=== PATIENT | female | born 1950 | race Caucasian/White ===

== ENCOUNTER → 2018-03-22 | Outpatient (CLI) | payer BC ==
[~2018-03-22] MED LIST: AMPH30TA2 PO; CLON2TAB9 PO; FISH OIL PO; LEVO88TA2 PO; LIOT50TA2 PO; MAGNESIUM PO; MELATONIN PO; OMEP-110 PO; POTA8TAB PO; TRIA1TAB3 PO; VITAMIN B PO; VITAMIN D PO; VITAMIN E PO; ZOLP5TAB6 PO
[2018-03-22 16:04] LABS: BASOPHILS # (AUTO) 0.03 x10^3/uL (0-0.1); BASOPHILS % (AUTO) 1 % (0-1); EOSINOPHILS # (AUTO) 0.17 x10^3/uL (0-0.4); EOSINOPHILS % (AUTO) 3 % (1-7); LYMPHOCYTES # (AUTO) 1.65 x10^3/uL (1-3.4); LYMPHOCYTES % (AUTO) 26 % (22-44); MD NO; MEAN CORPUSCULAR HEMOGLOBIN 31.1 pg (27.0-34.8); MEAN CORPUSCULAR HGB CONC 33.7 g/dL (32.4-35.8); MEAN CORPUSCULAR VOLUME 92.5 fL (80-100); MEAN PLATELET VOLUME 9.4 fL (7.4-10.4); MONOCYTES # (AUTO) 0.54 x10^3/uL (0.2-0.8); MONOCYTES % (AUTO) 9 % (2-9); NEUTROPHILS # (AUTO) 3.95 x10^3/uL (1.8-6.8); NEUTROPHILS % (AUTO) 62 % (42-75); PLATELET COUNT 314 x10^3/uL (130-400); RED BLOOD COUNT 4.56 x10^6/uL (3.82-5.3); RED CELL DISTRIBUTION WIDTH 12.5 % (9.6-15.2)
[2018-03-22 16:15] LABS: INTERNATIONAL NORMALIZED RATIO 1.01 (0.93-1.1); PROTHROMBIN TIME 10.7 Seconds (9.6-11.5)
[2018-03-22 16:18] LABS: ALANINE AMINOTRANSFERASE 51 U/L (12-78); ALBUMIN 3.6 g/dL (3.4-5.0); ANION GAP 7 mmol/L (5-15); CALCIUM 8.6 mg/dL (8.5-10.1); CHLORIDE 104 mmol/L (98-107); CREATININE 1.28 mg/dL (0.55-1.02)
[2018-03-22 16:20] LABS: ALKALINE PHOSPHATASE 113 U/L (45-117); BILIRUBIN,TOTAL 0.6 mg/dL (0.2-1.0); TOTAL PROTEIN 7.2 g/dL (6.4-8.2)
== END | disposition home or self-care (01) ==
LOC: STAR 15:05
PROVIDERS: ATTEND Specialist
DX: Z01.818 Encounter for other preprocedural examination (principal); C54.1 Malignant neoplasm of endometrium
CPT/HCPCS: 36415; 71046; 80053; 85025; 85610; 85730; 86304; 93005

== ENCOUNTER 2018-04-05 11:29 | Day surgery (SDC) | payer BC ==
[~2018-04-05] VITALS: Ht 152.4 cm; Wt 87.8 kg
[~2018-04-05 11:29] MED LIST changes: +BUPIVACAINE 0.25% ONE; +CEFAZOLIN 1,000 MG ONE; +DEXAMETHASONE 4 MG/ML, 1ML ONE; +EPINEPHRINE 1 MG/ML, 1ML ONE; +FENTANYL PF 250 MCG/5ML ONE; +GLYCOPYRROLATE 0.2MG/1ML, 5ML ONE; +MIDAZOLAM 1 MG/ML, 2ML ONE; +NEOSTIGMINE 1 MG/ML, 10ML ONE; +ONDANSETRON 2MG/ML, 2ML ONE; +PROPOFOL 10 MG/ML, 20ML ONE; +ROCURONIUM 10MG/ML,5ML ONE
[2018-04-05 12:01] VITALS: BP 168/91
[2018-04-05] MEDS ORDERED: LACTATED RINGERS 1,000 ML IV SCH (12:05)
[2018-04-05] MEDS ORDERED: GABAPENTIN 300 MG CAPSULE PO STA (12:07)
[2018-04-05] MEDS ORDERED: ACETAMINOPHEN 500 MG TABLET PO STA (12:07)
[2018-04-05] MEDS ORDERED: INDOCYANINE GREEN 25 MG VIAL ONE (12:12)
[2018-04-05] MEDS ORDERED: ACETAMINOPHEN 500 MG TABLET ONE (12:25)
[2018-04-05] MEDS ORDERED: GABAPENTIN 300 MG CAPSULE ONE (12:25)
[2018-04-05] MEDS ORDERED: LABETALOL 5MG/ML, 20ML IV PRN (12:30)
[2018-04-05] MEDS ORDERED: PROMETHAZINE 25 MG/ML, 1ML IM PRN ×2 (12:30)
[2018-04-05] MEDS ORDERED: ONDANSETRON 2MG/ML, 2ML IV PRN (12:30)
[2018-04-05] MEDS ORDERED: PROMETHAZINE 25 MG SUPP PR PRN (12:30)
[2018-04-05] MEDS ORDERED: OXYcodone 5 MG/5 ML ORAL.SOL UDC PO PRN (12:30)
[2018-04-05] MEDS ORDERED: MEPERIDINE/PF 25MG/0.5ML IVPush PRN (12:30)
[2018-04-05] MEDS ORDERED: HYDROmorphone 2 MG/ML, 1ML IVPush PRN (12:30)
[2018-04-05] MEDS ORDERED: MORPHINE SULFATE 4 MG/ML, 1ML IVPush PRN (12:30)
[2018-04-05] MEDS ORDERED: hydrALAzine 20 MG/ML, 1ML IV PRN (12:30)
[2018-04-05] MEDS ORDERED: FENTANYL PF 100 MCG/2ML IV PRN (12:30)
[2018-04-05] MEDS ORDERED: PROMETHAZINE 12.5 MG SUPP PR PRN (12:30)
[2018-04-05] MEDS ORDERED: ONDANSETRON ODT 8 MG PO PRN (12:30)
[2018-04-05] MEDS ORDERED: PROMETHAZINE 25 MG/ML, 1ML IV PRN (12:30)
[2018-04-05] MEDS ORDERED: ACETAMINOPHEN 500 MG TABLET PO ONE (13:00)
[2018-04-05] MEDS ORDERED: GABAPENTIN 300 MG CAPSULE PO ONE (13:00)
[2018-04-05] MEDS ORDERED: FENTANYL PF 250 MCG/5ML ONE (13:08)
[2018-04-05] MEDS ORDERED: KETOROLAC 30 MG/1 ML ONE (13:09)
[2018-04-05] MEDS ORDERED: OXYcodone 5 MG/5 ML ORAL.SOL UDC ONE ×2 (14:43→18:39)
[2018-04-05] MEDS ORDERED: LABETALOL 5MG/ML, 20ML ONE (14:49)
[2018-04-05] MEDS ORDERED: FENTANYL PF 100 MCG/2ML ONE (15:14)
[2018-04-05] MEDS ORDERED: METOCLOPRAMIDE 5 MG/ML, 2ML IVPush PRN (18:00)
[2018-04-05] MEDS ORDERED: ONDANSETRON 2MG/ML, 2ML IVPush PRN (18:00)
[2018-04-05] MEDS ORDERED: ACETAMINOPHEN 325 MG TABLET ONE (18:38)
[2018-04-05] MEDS ORDERED: OXYcodone/APAP 7.5/325MG TABLET PO PRN (19:00)
== END 2018-04-05 18:45 | disposition home or self-care (01) ==
LOC: OUT 11:29
PROVIDERS: ATTEND Specialist
DX: C54.1 Malignant neoplasm of endometrium (principal); D25.0 Submucous leiomyoma of uterus; N88.8 Other specified noninflammatory disorders of cervix uteri; E03.9 Hypothyroidism, unspecified; K21.9 Gastro-esophageal reflux disease without esophagitis; I10 Essential (primary) hypertension; Z88.0 Allergy status to penicillin; Z98.890 Other specified postprocedural states
CPT/HCPCS: 36415; 38510; 58552; 74018; 86850; 86900; 86923; 88112; 88305; 88309; 88331; 88333; J0171; J0690; J1100; J1885; J2250; J2405; J2704; J2710; J3010; J3490; J7120; S2900